=== PATIENT | female | born 1975 | race Caucasian/White ===

== ENCOUNTER 2017-03-23 12:16 | Emergency (ER) | payer BC ==
[~2017-03-23] VITALS: Ht 167.6 cm; Wt 68.5 kg
[~2017-03-23 12:16] MED LIST: AMOX1TAB67 PO; BEN50 PO; FAMO-96 PO; FER325 PO; FERR325C PO; NAPR-260 PO; NORG1TAB14 PO; PRED20TA PO
[2017-03-23 12:18] VITALS: Ht 167.6 cm; Wt 68.5 kg
[2017-03-23] MEDS ORDERED: NASO17 NASAL (12:38)
[2017-03-23] MEDS ORDERED: NAPR-688 PO (12:38)
[2017-03-23] MEDS ORDERED: KETOROLAC 30 MG INJ IM STA (12:40)
--- NOTE | 2017-03-23 20:18 | ERD ---
ER Documentation Chief Complaint Date/Time DATE: 03/23/17 TIME: 20:12 Chief Complaint Complains of painful left nostril HPI 41-year-old woman complaining of left nostril and facial pain. She denies fevers or chills although does state she has some congestion. She denies domestic violence or trauma, no epistaxis, no headache or blurry vision, no neck pain or stiffness, no vomiting or diarrhea ROS All systems reviewed and are negative except as per history of present illness. Medications Home Meds Active Scripts Naproxen* (Naproxen*) 500 Mg Tablet, 500 MG PO BID Y for PAIN AND/OR INFLAMMATION, #30 TAB Prov:OLMAN EDMONDSON MD 03/23/17 Mometasone Furoate* (Nasonex*) 50 Mcg/[place] - 17 Gm [place].pump, 1 SPRAY NASAL BID for NASAL CONGESTION for 7 Days, #1 BOTTLE IN EACH NOSTRIL Prov:OLMAN EDMONDSON MD 03/23/17 Famotidine* (Pepcid*) 20 Mg Tablet, 20 MG PO BID for 4 Days, #30 TAB Prov:FLORECITA VILLA PA-C 07/12/16 Ferrous Sulfate* (Ferrous Sulfate*) 325 Mg Tabec, 325 MG PO TID, #60 TAB Prov:FLORECITA VILLA PA-C 07/12/16 Norgestimate-Ethinyl Estradiol (Sprintec 28 Day Tablet) 1 Each Tablet, 1 EACH PO BID, #28 TAB 3 tablets PO BID for day 1,2 2 tablets PO BID for day 3,4 1 tablet PO once a day for the rest of the days except skip last week of the pack of control, Restart 1 tablet PO once a day of 2nd pack. Prov:FLORECITA VILLA PA-C 07/12/16 Naproxen* (Naprosyn*) 500 Mg Tablet, 500 MG PO BID, #30 TAB Prov:BRADEN LUNSFORD PA-C 06/08/16 Prednisone* (Prednisone*) 20 Mg Tab, 60 MG PO DAILY for 5 Days, TAB Prov:LOUISA ZHAO 12/10/15 Diphenhydramine Hcl* (Benadryl*) 50 Mg Cap, 50 MG PO Q6H Y for ALLERGIC REACTION , #30 CAP Prov:LOUISA ZHAO 12/10/15 Amoxicillin-Clavulanate K* (Augmentin*) 500 Mg Tab, 500 MG PO TID for 10 Days, TAB Prov:LOUISA ZHAO 12/10/15 Reported Medications Ferrous Sulfate (Iron) 325 Mg Capsr, 325 MG PO DAILY 12/10/15 Allergies Allergies: Coded Allergies: No Known Allergy (Unverified , 07/12/16) PMhx/Soc Anemia History of Surgery: Yes (, HYSTERECTOMY, MYOECTOMY ) Anesthesia Reaction: No Hx Neurological Disorder: No Hx Respiratory Disorders: No Hx Cardiac Disorders: No Hx Psychiatric Problems: No Hx Miscellaneous Medical Probl: No Hx Alcohol Use: Yes (socially) Hx Substance Use: No Hx Tobacco Use: No Smoking Status: Former smoker FmHx Family History: No diabetes Physical Exam Vitals Vital Signs Date Time Temp Pulse Resp B/P Pulse Ox O2 Delivery O2 Flow Rate FiO2 03/23/17 12:18 98.0 95 20 120/70 99 Physical Exam GENERAL: Well-developed, well-nourished, well-hydrated, in no apparent distress , looks nontoxic in appearance HEENT: Moist mucous membranes, pink conjunctiva, no cervical spine tenderness or step-off deformities, no goiter, no jaundice or icterus, extraocular movements intact without pain. No submandibular induration, and no pharyngeal erythema NEURO: Alert and oriented 3, cranial nerves II through XII intact bilaterally, pupils equal round reactive to light, no focal deficits or facial asymmetry, sensation intact distally Strength 5/5 in upper and lower extremities bilaterally CARDIAC: Regular rate and rhythm, no murmurs rubs or gallops LUNGS: Clear bilaterally no wheezing crackles or stridor ABDOMEN: Soft nontender, no guarding, no rigidity, no rebound, no psoas sign no obturator sign. Normoactive bowel sounds SKIN: Warm and dry to touch, no abrasions, contusions, or hematomas, no lacerations, no ecchymosis, no target lesions, and without ulcers EXTREMITIES: No clubbing cyanosis or edema, calves are bilaterally symmetrical, no Homans sign, no popliteal cord sign. Distal pulses equal and bilateral PSYCH: Normal affect without agitation or irritability Results 24 hrs Current Medications Medications (Trade) Dose Ordered Sig/Ellen Route PRN Reason Start Time Stop Time Status Last Admin Dose Admin Ketorolac Tromethamine (Toradol) 30 mg ONCE STAT IM 03/23/17 12:40 03/23/17 12:41 DC 03/23/17 12:50 Procedures/MDM Reassurance was provided to the patient. I also treated her here with Toradol 30 mg intramuscular injection with good pain control. Patient feels much better at this time, and vital signs are normal, symptoms have improved. I did give strict instructions to return to the ED if symptoms continue or worsen, patient will otherwise follow-up with primary care physician. Patient understood instructions and agreed to plan. Disclaimer: Inadvertent spelling and grammatical errors are likely due to EHR/ dictation software use and do not reflect on the overall quality of patient care. Also, please note that the electronic time recorded on this note does not necessarily reflect the actual time of the patient encounter. Departure Diagnosis: Primary Impression: Nasal congestion Additional Impression: Nasal pain Condition: Good Patient Instructions: Nasal Congestion (Infant/Toddler), Sinusitis, No Abx OLMAN EDMONDSON MD Mar 23, 2017 20:18
== END 2017-03-23 12:52 | disposition home or self-care (01) ==
LOC: FTE 12:16
DX: R09.81 Nasal congestion (principal); Z87.891 Personal history of nicotine dependence
CPT/HCPCS: 96372; 99284; J1885

== ENCOUNTER 2017-05-25 08:18 | Emergency (ER) | payer BC ==
[~2017-05-25] VITALS: Ht 157.5 cm; Wt 71.0 kg
[~2017-05-25 08:18] MED LIST changes: +NAPR-688 PO; +NASO17 NASAL
[2017-05-25 08:20] VITALS: Ht 157.5 cm; Wt 71.0 kg
[2017-05-25] MEDS ORDERED: ERYT1OIN6 RIGHT EYE (08:49)
--- NOTE | 2017-05-25 09:08 | ERD ---
ER Documentation Chief Complaint Date/Time DATE: 05/25/17 TIME: 09:07 Chief Complaint EYE PAIN R EYE STYE AND COUGH AND ST HPI 42 year old female comes in with a dry cough, sore throat and right lower eyelid swelling for 2 days. Patient States that her son is sick at home as well. No hemoptysis, fevers, chills, chest pain or shortness of breath. ROS All systems reviewed and are negative except as per history of present illness. Medications Home Meds Active Scripts Erythromycin (Erythromycin Opth) 3.5 Gm Oint..gm., 1 APPLIC RIGHT EYE QID, #1 Prov:EDU RYAN PA-C 05/25/17 Naproxen* (Naproxen*) 500 Mg Tablet, 500 MG PO BID Y for PAIN AND/OR INFLAMMATION, #30 TAB Prov:OLMAN EDMONDSON MD 03/23/17 Mometasone Furoate* (Nasonex*) 50 Mcg/[place] - 17 Gm [place].pump, 1 SPRAY NASAL BID for NASAL CONGESTION for 7 Days, #1 BOTTLE IN EACH NOSTRIL Prov:OLMAN EDMONDSON MD 03/23/17 Famotidine* (Pepcid*) 20 Mg Tablet, 20 MG PO BID for 4 Days, #30 TAB Prov:FLORECITA VILLA PA-C 07/12/16 Ferrous Sulfate* (Ferrous Sulfate*) 325 Mg Tabec, 325 MG PO TID, #60 TAB Prov:FLORECTIA VILLA PA-C 07/12/16 Norgestimate-Ethinyl Estradiol (Sprintec 28 Day Tablet) 1 Each Tablet, 1 EACH PO BID, #28 TAB 3 tablets PO BID for day 1,2 2 tablets PO BID for day 3,4 1 tablet PO once a day for the rest of the days except skip last week of the pack of control, Restart 1 tablet PO once a day of 2nd pack. Prov:FLORECITA VILLA PA-C 07/12/16 Naproxen* (Naprosyn*) 500 Mg Tablet, 500 MG PO BID, #30 TAB Prov:BRADEN LUNSFORD PA-C 06/08/16 Prednisone* (Prednisone*) 20 Mg Tab, 60 MG PO DAILY for 5 Days, TAB Prov:LOUISA ZHAO 12/10/15 Diphenhydramine Hcl* (Benadryl*) 50 Mg Cap, 50 MG PO Q6H Y for ALLERGIC REACTION , #30 CAP Prov:LOUISA ZHAO 12/10/15 Amoxicillin-Clavulanate K* (Augmentin*) 500 Mg Tab, 500 MG PO TID for 10 Days, TAB Prov:LOUISA ZHAO 12/10/15 Reported Medications Ferrous Sulfate (Iron) 325 Mg Capsr, 325 MG PO DAILY 12/10/15 Allergies Allergies: Coded Allergies: No Known Allergy (Unverified , 07/12/16) PMhx/Soc History of Surgery: Yes (, HYSTERECTOMY, MYOECTOMY ) Anesthesia Reaction: No Hx Neurological Disorder: No Hx Respiratory Disorders: No Hx Cardiac Disorders: No Hx Psychiatric Problems: No Hx Miscellaneous Medical Probl: No Hx Alcohol Use: Yes (socially) Hx Substance Use: No Hx Tobacco Use: No Smoking Status: Never smoker Physical Exam Vitals Vital Signs Date Time Temp Pulse Resp B/P Pulse Ox O2 Delivery O2 Flow Rate FiO2 05/25/17 08:20 98.0 77 11 115/56 100 Physical Exam Const: Well-developed, well-nourished, in no acute distress. HEENT: Atraumatic. Normal Conjunctiva. TM's normal bilaterally, clear oropharynx. Supple. Full range of motion. No meningismus. 3 mm external hordeolum on the left lower eyelid. Resp: Clear to auscultation bilaterally Cardio: Regular rate and rhythm, no murmurs Abd: Soft, non tender, non distended. Normal bowel sounds. No McBurney' s point tenderness. No guarding or rigidity. No peritoneal signs. Skin: No petechia or rashes Back: No midline or flank tenderness Ext: No cyanosis, or edema Neur: Alert and oriented Procedures/MDM The patient is a 42-year-old female who comes in with an acute upper respiratory infection, presumed viral, stye in the lower eyelid of the right eye. The patient has a differential diagnosis of a viral upper respiratory infection, bacterial upper respiratory infection, bronchitis, pneumonia, pharyngitis, laryngitis, epiglottitis, croup, pneumonia. Patient has a normal pulmonary examination, clear breath sounds, normal pulse oximetry, with no corrective measures needed at this time. Fluids, rest, antipyretics were encouraged. Departure Diagnosis: Primary Impression: Stye Additional Impression: URI, acute Condition: Good Patient Instructions: Carm[place], Uri, Viral, No Abx (Adult) EDU RYAN PA-C May 25, 2017 09:08
== END 2017-05-25 09:00 | disposition home or self-care (01) ==
LOC: FTE 08:18
DX: H00.012 Hordeolum externum right lower eyelid (principal); J06.9 Acute upper respiratory infection, unspecified
CPT/HCPCS: 99283

== ENCOUNTER 2018-06-07 17:50 | Emergency (ER) | END 2018-06-07 21:34 | disposition home or self-care (01) ==

== ENCOUNTER 2018-12-12 03:55 | Emergency (ER) | payer BC ==
[~2018-12-12] VITALS: Wt 74.5 kg
[~2018-12-12 03:55] MED LIST changes: +ERYT1OIN6 RIGHT EYE; +IBUP-1561 PO; -NAPR-260 PO; +NAPR-985 PO
--- NOTE | 2018-12-12 05:13 | ERD ---
ER Documentation Chief Complaint Chief Complaint R SIDE BREAST PAIN RADIATING DOWN SIDE TO RLQ X'S 2 DAYS HPI 43-year-old female, previously healthy, presents to the emergency department, c omplaining of 2 days with right chest wall pain, sharp, constant, worsened by cough and deep palpation. The patient also reports 2 days with dry cough but denies fevers, no chills, no shortness of breath. ROS All systems reviewed and are negative except as per history of present illness. Medications Home Meds Active Scripts Ibuprofen* (Motrin*) 400 Mg Tab, 400 MG PO Q6H PRN for PAIN AND OR ELEVATED TEMP, #20 TAB Prov:SHERRI KERR MD 12/12/18 Promethazine Hcl* (Promethazine Hcl* Syrup) 6.25 Mg/5 Ml Syrup, 6.25 MG PO QHS PRN for COUGH, #60 ML Prov:SHERRI KERR MD 12/12/18 Hydrocodone/Acetaminophen ([place] 5-325 Tablet) 1 Each Tablet, 1 TAB PO QHS PRN for PAIN, #7 TAB Prov:SHERRI KERR MD 12/12/18 Ibuprofen* (Motrin*) 400 Mg Tab, 400 MG PO Q6, #30 TAB Prov:KEARA MENJIVAR PA-C 06/07/18 Erythromycin (Erythromycin Opth) 3.5 Gm Oint..gm., 1 APPLIC RIGHT EYE QID, #1 Prov:EDU RYAN PA-C 05/25/17 Naproxen* (Naproxen*) 500 Mg Tablet, 500 MG PO BID PRN for PAIN AND/OR INFLAMMATION, #30 TAB Prov:OLMAN EDMONDSON MD 03/23/17 Mometasone Furoate* (Nasonex*) 50 Mcg/[place] - 17 Gm [place].pump, 1 SPRAY NASAL BID for NASAL CONGESTION for 7 Days, #1 BOTTLE IN EACH NOSTRIL Prov:OLMAN EDMONDSON MD 03/23/17 Famotidine* (Pepcid*) 20 Mg Tablet, 20 MG PO BID for 4 Days, #30 TAB Prov:FLORECITA VILLA PA-C 07/12/16 Ferrous Sulfate* (Ferrous Sulfate*) 325 Mg Tabec, 325 MG PO TID, #60 TAB Prov:FLORECITA VILLA PA-C 07/12/16 Norgestimate-Ethinyl Estradiol (Sprintec 28 Day Tablet) 1 Each Tablet, 1 EACH PO BID, #28 TAB 3 tablets PO BID for day 1,2 2 tablets PO BID for day 3,4 1 tablet PO once a day for the rest of the days except skip last week of the pack of control, Restart 1 tablet PO once a day of 2nd pack. Prov:FLORECITA VILLA PA-C 07/12/16 Naproxen* (Naprosyn*) 500 Mg Tablet, 500 MG PO BID, #30 TAB Prov:BRADEN LUNSFORD PA-C 06/08/16 Prednisone* (Prednisone*) 20 Mg Tab, 60 MG PO DAILY for 5 Days, TAB Prov:LOUISA ZHAO MD 12/10/15 Diphenhydramine Hcl* (Benadryl*) 50 Mg Cap, 50 MG PO Q6H PRN for ALLERGIC REACTION, #30 CAP Prov:LOUISA ZHAO MD 12/10/15 Amoxicillin-Clavulanate K* (Augmentin*) 500 Mg Tab, 500 MG PO TID for 10 Days, TAB Prov:LOUISA ZHAO MD 12/10/15 Reported Medications Ferrous Sulfate (Iron) 325 Mg Capsr, 325 MG PO DAILY 12/10/15 Allergies Allergies: Coded Allergies: No Known Allergy (Unverified , 07/12/16) PMhx/Soc History of Surgery: Yes (, HYSTERECTOMY, MYOECTOMY ) Anesthesia Reaction: No Hx Neurological Disorder: No Hx Respiratory Disorders: No Hx Cardiac Disorders: No Hx Psychiatric Problems: No Hx Miscellaneous Medical Probl: No Hx Alcohol Use: Yes (socially) Hx Substance Use: No Hx Tobacco Use: No Smoking Status: Never smoker Physical Exam Vitals Vital Signs Date Temp Pulse Resp B/P (MAP) Pulse Ox O2 O2 Flow FiO2 Time Delivery Rate 12/12/18 99.0 86 18 110/71 98 04:01 (84) Physical Exam Patient alert, oriented, vital signs stable. HEENT: Normocephalic, atraumatic. EYES: PERRLA, EOMI, Sclera and conjunctiva appear normal. EARS: Canals clear, tympanic membranes WNL. THROAT: Normal oropharynx. NECK: Supple, No lymphadenopathy. Full ROM without pain or tenderness. HEART: RRR, no rubs, murmurs, clicks or gallops. LUNGS: Clear to auscultation. ABDOMEN: Soft, non-tender without masses or hepatosplenomegaly. EXTREMITIES: No edema bilaterally. BACK: Full ROM, no deformity, normal back exam NEURO: Cranial nerves grossly intact, no motor or sensory deficit SKIN: No rashes, no petechia. Procedures/MDM Vital signs stable. Differential diagnosis include but not limited to: URI, PNA, chostochondritis, GERD, musculoskeletal injury, less likely PE, pericarditis, endocarditis. Radiology: Chest x-rays: Normal Physical examination and clinical presentation consistent most likely with atypical chest pain most likely secondary to costochondritis versus chest wall muscle strain. During the ED course the patient remained stable, no new complaints. Results and clinical impression discussed with patient who agrees with management. The patient is stable to be treated outpatient and will be discharged home. some side effects of prescribed medications (headache, rash, nausea, vomiting, diarrhea, drowsiness, habituation, bleeding, hypertension, interactions with other medications) were reviewed. The patient was informed that the evaluation in the emergency department has been done to rule out an acute emergency, therefore, chronic medical diseases or malignancy have not been evaluated; therefore, the patient was instructed to follow up with the primary care provider in the next 48h. If symptoms persist, worsen or new symptoms develop, then patient should return to the ED immediately. Instructions explained and given directly by me to the patient with acknowledgment and demonstrated understanding. Disclaimer: Inadvertent spelling and grammatical errors are likely due to EHR/dictation software use and do not reflect on the overall quality of patient care. Also, please note that the electronic time recorded on this note does not necessarily reflect the actual time of the patient encounter. Departure Diagnosis: Primary Impression: Right-sided chest wall pain Condition: Stable Additional Instructions: Thank you very much for allowing us to participate in your care. Your health and safety is our top priority at [facility]. Call your primary care doctor TOMORROW for an appointment during the next 2-4 days and bring all the information and medications prescribed. Have prescriptions filled and follow precisely the directions on the label. If the symptoms get worse and your provider is unavailable, return to the Emergency Department immediately. SHERRI KERR MD Dec 12, 2018 05:13
[2018-12-12] MEDS ORDERED: PROM6.2515 PO (06:15)
[2018-12-12] MEDS ORDERED: IBUP-1561 PO (06:15)
[2018-12-12] MEDS ORDERED: HYDR-4011 PO (06:15)
== END 2018-12-12 06:26 | disposition home or self-care (01) ==
LOC: FTE 03:55
DX: R07.89 Other chest pain (principal)
CPT/HCPCS: 71046